=== PATIENT | female | born 1980 | race Caucasian/White ===

== ENCOUNTER 2016-09-05 05:35 | Outpatient (CLI) | payer MEDICAID ==
[~2016-09-05] VITALS: Ht 172.7 cm; Wt 94.3 kg
[~2016-09-05 05:35] MED LIST: ACET-789 PO; IBUP-1773 PO; METF1000 PO; [UNRECOGNIZED DRUG - CODE] PO
--- NOTE | 2016-09-05 08:54 | Progress Note-Pre Operative ---
Pre-Operative Progress Note H&P Reviewed The H&P was reviewed, patient examined and no changes noted. Date H&P Reviewed: Sep 05, 2016 Time H&P Reviewed: 08:50 Pre-Operative Diagnosis: Pelvic Mass(cystic structure) LAURA LAUGHLIN DO Sep 05, 2016 8:54 am
== END 2016-09-05 13:24 ==
LOC: PREOP 05:35
PROVIDERS: ATTEND Obstetrics & Gynecology
DX: Z01.818 Encounter for other preprocedural examination (principal); N93.9 Abnormal uterine and vaginal bleeding, unspecified

== ENCOUNTER 2016-09-12 06:04 | Day surgery (SDC) | payer MEDICAID ==
[~2016-09-12] VITALS: Ht 172.7 cm; Wt 94.3 kg
--- OUTSIDE RECORDS SUMMARY | 2016-09-12 06:09 | XMS REPORT | Continuity of Care Document ---
Author Author [facility] Organization [facility] Address Unknown Phone Unavailable Allergies Medications Problems Procedures Results Encounters ACCT No. Visit Date/Time Discharge Status Pt. Type Provider Facility Loc./Unit Complaint [id number] 08/12/2014 10:59:25 08/12/2014 23: 59:59 CLS Outpatient Maribel Zimmerman [id number] 04/21/2014 20:44:42 04/21/2014 23: 59:59 CLS Outpatient Efe Monroe
[2016-09-12 06:30] VITALS: BP 116/77
[2016-09-12] MEDS ORDERED: ceFAZolin 1,000 MG (ANCEF) VIAL ONE (06:34)
[2016-09-12] MEDS ORDERED: metroNIDAZOLE 500MG/100ML IVPB 100 ML ONE (06:34)
[2016-09-12] MEDS ORDERED: NS (IVPB) 50 ML ONE (06:34)
[2016-09-12] MEDS ORDERED: metroNIDAZOLE 500 MG/100 ML IVPB (PRE-MIX) IV ONE (06:45)
[2016-09-12] MEDS ORDERED: ceFAZolin 1 GM/NS 50 ML IVPB IV ONE ×2 (06:45)
--- NOTE | 2016-09-12 06:51 | Progress Note-Pre Operative ---
Pre-Operative Progress Note H&P Reviewed The H&P was reviewed, patient examined and no changes noted. Date H&P Reviewed: Sep 12, 2016 Time H&P Reviewed: 06:50 Pre-Operative Diagnosis: AUB, Obesity LAURA LAUGHLIN DO Sep 12, 2016 6:51 am
[2016-09-12] MEDS ORDERED: LIDOCAINE PF 2% 10 ML (XYLOCAINE) AMP ONE (06:53)
[2016-09-12] MEDS ORDERED: ROCURONIUM 50 MG/5 ML (ZEMURON) VIAL IV ONE (06:53)
[2016-09-12] MEDS ORDERED: proPOfol 200 MG/20 ML (DIPRIVAN) VIAL IV ONE (06:53)
[2016-09-12] MEDS ORDERED: LIDOCAINE JELLY 2% (XYLOCAINE) 5 ML TUBE ONE (06:53)
[2016-09-12] MEDS ORDERED: ONDANSETRON 4 MG/2 ML (SDV) Z0FRAN ONE (06:53)
[2016-09-12] MEDS ORDERED: MIDAZOLAM 2 MG/2 ML (VERSED) VIAL ONE (06:54)
[2016-09-12] MEDS ORDERED: fentaNYL INJECTION 250 MCG/5 ML AMP ONE (06:54)
[2016-09-12 07:00] LABS: BASOPHILS % (AUTO) 0 % (0-10); EOSINOPHILS # (AUTO) 0.3 10^3/uL (0.0-0.3); EOSINOPHILS % (AUTO) 4 % (0-10); LYMPHOCYTES # (AUTO) 2.7 X 10^3 (1.0-4.0); LYMPHOCYTES % (AUTO) 39 % (12-44); MEAN CORPUSCULAR HEMOGLOBIN 31 PG (25-34); MEAN CORPUSCULAR HGB CONC 35 G/DL (32-36); MEAN CORPUSCULAR VOLUME 88 FL (80-99); MEAN PLATELET VOLUME 9.2 FL (7.4-10.4); MONOCYTES # (AUTO) 0.7 X 10^3 (0.0-1.0); MONOCYTES % (AUTO) 10 % (0-12); NEUTROPHILS # (AUTO) 3.3 X 10^3 (1.8-7.8); NEUTROPHILS % (AUTO) 48 % (42-75); PLATELET COUNT 313 10^3/uL (130-400); RED BLOOD COUNT 4.61 10^6/uL (4.35-5.85); RED CELL DISTRIBUTION WIDTH 11.6 % (10.0-14.5)
[2016-09-12] MEDS ORDERED: BUPIVACAINE 0.25% 30 ML (SENSORCAINE) VIAL ONE (07:06)
[2016-09-12] MEDS: LACTATED RINGERS 1,000 ML IV PRN ×2 (07:18→08:20)
[2016-09-12] MEDS ORDERED: SEVOFLURANE (ULTANE) 15 ML INHAL SOLN ONE ×6 (07:50→09:00)
[2016-09-12] MEDS ORDERED: LACTATED RINGERS 1,000 ML IV ONE (09:00)
--- NOTE | 2016-09-12 09:07 | Progress Note-Post Operative ---
Post-Operative Progess Note Swatch Paster Dana Galeas Pre-Operative Diagnosis AUB, Obesity Post-Operative Diagnosis same Post-Op Procedure Note Date of Procedure: Sep 12, 2016 Name of Procedure: RATLH with bilateral salpingectomy Procedure Note/Findings see dictation Anesthesia Type GETA Estimated blood loss (mL): 30 Specimen(s) collected uterus and tubes LAURA LAUGHLIN DO Sep 12, 2016 9:07 am
--- NOTE | 2016-09-12 09:10 | Discharge Inst-Women's Service ---
Discharge Inst-Women's Serv Depart Medication/Instructions New, Converted or Re-Newed RX: RX on Chart Consults/Follow Up Additional Follow Up: Yes Orders/Referrals Dr. Lucia in 7-10 days and in 8 Weeks Activity Activity: Activity as Tolerated Driving Instructions: No Driving for 1 Week NO SMOKING: NO SMOKING Nothing Inside Vagina: No Douching, No Windber, No Tampons Diet Discharge Diet: No Restrictions Symptoms to Report to : Bleeding Excessive, Pain Increased, Fever Over 101 Degrees F, Vaginal Bleeding Increase, Questions/Concerns For Any Problems or Questions: Contact Your Physician Skin/Wound Care Infection Signs and Symptoms: Increased Redness, Foul Odor of Wound, Increased Drainage, Skin Itchy or Has a Rash, Increased Swelling, Temperature Above 101 F Operative Area Clean and Dry: Keep Incision Clean/Dry Stitches/Dano/Dermabond: Dermabond, Care of Stitches Bathing Instructions: LAURA Vasquez DO Sep 12, 2016 9:10 am
[2016-09-12] MEDS ORDERED: DOCU100C37 PO (09:11)
[2016-09-12] MEDS ORDERED: HYDR-3816 PO (09:11)
[2016-09-12] MEDS ORDERED: SIME80TA16 PO (09:11)
[2016-09-12] MEDS ORDERED: IBUP-1773 PO (09:11)
[2016-09-12] MEDS ORDERED: CHLORASEPTIC LOZENGE MM PRN (09:15)
[2016-09-12] MEDS ORDERED: ONDANSETRON 4 MG/2 ML (SDV) Z0FRAN IV PRN (09:15)
[2016-09-12] MEDS ORDERED: HYDROcodone/APAP 7.5 MG/325 MG (LORTAB, LORCET PLUS) TABLET PO PRN (09:15)
[2016-09-12] MEDS ORDERED: ZOLPIDEM 5 MG (AMBIEN) TAB PO PRN (09:15)
[2016-09-12] MEDS ORDERED: ANTACID SUSP 30 ML UDC (MYLANTA) PO PRN (09:15)
[2016-09-12] MEDS ORDERED: SIMETHICONE 80 MG (MYLICON) CHEW PO PRN (09:15)
[2016-09-12] MEDS ORDERED: DOCUSATE SODIUM 100 MG (COLACE) CAP PO PRN (09:15)
[2016-09-12] MEDS ORDERED: fentaNYL INJECTION 100 MCG/2 ML AMP ONE (09:18)
[2016-09-12] MEDS: fentaNYL INJECTION 100 MCG/2 ML AMP IVP PRN ×2 (09:29→09:36)
[2016-09-12] MEDS ORDERED: MEPERIDINE (DEMEROL) INJ 50 MG/ML IVP PRN (09:30)
[2016-09-12] MEDS ORDERED: ONDANSETRON 4 MG/2 ML (SDV) Z0FRAN IVP PRN (09:30)
[2016-09-12] MEDS: KETOROLAC 30 MG/ML VIAL IV PRN ×2 (09:31→16:31)
[2016-09-12] MEDS: morphine INJ 10 MG/ML 1ML (SYR OR VIAL) IVP PRN ×2 (09:47→09:56)
[2016-09-12 10:30] VITALS: BP 124/74
[2016-09-12] MEDS: LACTATED RINGERS 1,000 ML IV SCH ×2 (10:49→13:50)
[2016-09-12 12:45] VITALS: BP 102/62
[2016-09-12] MEDS ORDERED: HYDROmorphone (DILAUDID) 2 MG/ML VIAL IVP ONE (13:30)
[2016-09-12] MEDS ORDERED: FUROSEMIDE 40 MG/4 ML INJ (LASIX) IVP NR (15:15)
[2016-09-12] MEDS ORDERED: FUROSEMIDE 40 MG/4 ML INJ (LASIX) ONE (15:15)
[2016-09-12 15:25] VITALS: BP 110/66
[2016-09-12] MEDS ORDERED: PROMETHAZINE INJ 25 MG/ML (PHENERGAN) AMP IVP ONE (17:30)
[2016-09-12 19:45] VITALS: BP 107/68
[2016-09-13] MEDS ORDERED: IBUPROFEN 600 MG (MOTRIN) TAB PO PRN (02:00)
--- NOTE | 2016-09-13 11:14 | OPERATIVE REPORT ---
PROCEDURE PHYSICIAN: LORENZO LAUGHLIN DATE OF PROCEDURE: 09/12/2016 PREOPERATIVE DIAGNOSIS: 1. 36-year-old female with abnormal uterine bleeding. 2. Dysmenorrhea. 3. Obesity. 4. Tobacco use. POSTOPERATIVE DIAGNOSIS: 1. 36-year-old female with abnormal uterine bleeding. 2. Dysmenorrhea. 3. Obesity. 4. Tobacco use. PROCEDURE: Robotic assisted total laparoscopic hysterectomy and bilateral salpingectomy. SURGEON: Dr. Lorenzo Laughlin. CRM CAMPAIGN MANAGER: Dana Galeas APRN ANESTHESIA: General endotracheal. ESTIMATED BLOOD LOSS: 30 mL. URINE OUTPUT: 25 mL, clear at the of the procedure. FLUIDS: 1700 mL lactated ringer solution. FINDINGS: Findings is a normal appearing uterus that is slightly hyperemic and hypervascular appearing with some filmy adhesions of the vesicouterine peritoneum. Grossly normal appearing bilateral ovaries, grossly normal appearing bilateral fallopian tubes. SPECIMEN SENT: Uterus, bilateral fallopian tubes. INDICATIONS FOR THE PROCEDURE: This 36-year-old female was a consultation from my office for abnormal uterine bleeding. She underwent D&C hysteroscopy approximately 4 to 5 months ago. Endometrial curettings from that procedure found to have no signs of infection, malignancy or hyperplasia. After this, the patient continued to have issues with bleeding for the next 3 to 4 months to the point that it extremely frustrating. She been extensively counseled about controlling abnormal uterine bleeding with oral contraceptive pills, NSAIDS, tranexamic acid, Mirena IUD, endometrial ablations and then finally the most definitive measure would be moving forward to hysterectomy. After all those were discussed with the patient, due to her tobacco use, we did eliminate hormonal management and the patient did not wish to go forward with any of the other measures once they were discussed in detail. Therefore, she opted to proceed with hysterectomy. Risks of the procedure were discussed with the patient in detail including risk of bleeding, infection, damaging any surrounding structures, including, but not limited to the bowel, bladder, ureter, kidneys, risk for possible subsequent surgeries if any of these things should occur. Risk of postoperative hematoma formation, thromboembolic event, risk from anesthesia, risk for blood transfusion, and even were discussed with the patient. After all of her questions were answered. She was scheduled for the procedure. Consent was obtained in the preoperative area where the procedure was reviewed with her present and the patient was then taken the operating room. OPERATIVE REPORT IN DETAIL: Once in the operating room, general anesthesia was found to be adequate. She was placed in dorsal lithotomy position, prepped and draped in the normal sterile fashion. She was first examined under anesthesia. The uterus is not enlarged, freely mobile. There is no adnexal fullness or masses appreciated on bimanual examination. A weighted speculum was inserted into the patient's vagina. A right angle retractor is used to visualize the cervix. It was grasped at 12 o'clock position using a long Allis clamp. I then place an 0 Vicryl suture to the anterior lip of the cervix, remove the long Allis clamp and use my suture now as my retraction point. I then gently sound the uterine cavity depth which was found to be 8 cm. I then select an 8 cm PADMAJA uterine manipulator tip and a 3.5 cm colpotomy ring and place in the endometrial cavity, deploy the balloon and advanced the colpotomy ring around the vaginal fornix. Once this is in place there is excellent uterine manipulation noted on bimanual examination. I then proceed with placing a Ortiz catheter using sterile technique. I perform a change of gloves and take my attention to the abdomen where infraumbilically, I infiltrate this area using 0.25% Marcaine. I make an 8 mm incision and direct a Veress needle through this incision until intraperitoneal placement is confirmed using saline drop test. I proceed with insufflation using CO2 gas. An opening pressure of 5 mmHg is noted. I proceed to maximum pressure of 15 mmHg at which point I remove the Veress needle and introduced an 8 mm blunt da Kyung camera trocar. Once this is in place, intraperitoneal placement is confirmed using the da Kyung laparoscope. I then place 2 lateral trocars; these are both 8 mm trocars. I infiltrate the skin using 0.25% Marcaine make 8 mm incision and approximately 8 cm lateral to my infraumbilical trocar. We direct these trocars under direct visualization of the laparoscope into the peritoneal cavity. Once they are in the peritoneal cavity and I have adequate instrumentation to dock the da Kyung robot, we bring in the da Kyung robot and dock it in the appropriate fashion. I place the da Kyung vessel sealer in the left hand. Monopolar justen in the right hand and take my place at the operative console. I perform the following dissection bilaterally; I grasp the utero-ovarian ligament using the vessel sealer and bipolar cauterize and transect it using the vessel sealer. I then create a window in the mesosalpinx and take this dissection laterally using the monopolar shear and the vessel sealer removing the fallopian tube from the mesosalpinx. I then grasp the round ligament, bipolar cauterizing it and transecting using the vessel sealer. I then am able to grasp the entire broad ligament from the cephalad approach. I grasp this, bipolar cauterize it and transect it using the vessel sealer down to the level of the lower uterine segment; keeping an eye on the it pulsating and peristalsing ureters laterally the entire time, staying clear of these. I then separate the anterior posterior leaflets of the broad ligament. The anterior leaflet is taken around to the anterior vaginal fornix. The posterior leaflet is taken around to the posterior vaginal fornix. This allows me to skeletonize the uterine vessels laterally, bipolar cauterize them and transect them using the vessel sealer. Once a circumferential view is noted of my colpotomy ring, I perform a colpotomy at the 12 o'clock position using monopolar justen and take this circumferentially around the vaginal fornix, amputating the uterus and cervix away from the vaginal fornix. The entire uterus and bilateral fallopian tubes are then removed through the vagina. I then proceed with closing the vagina using 2-0 Vicryl suture in a [id number] fashion of the lateral vaginal apices. The remainder of the vaginal cuff is closed using 2-0 V-Loc in a running fashion. There is no active bleeding noted from any my dissection planes. I then undock the da Kyung robot and copiously irrigate the pelvis using normal saline, after I scrub back into the procedure. Once again there is no active bleeding noted from any my dissection planes. I then place FloSeal hemostatic agent over all my planes of dissection. I have the patient taken out of steep Trendelenburg. I direct and visualize the lateral trocar sites been removed. There is no active bleeding noted or hematoma formation noted from either one of these trocar sites. I then release insufflation from my infraumbilical trocar site and introduce 10 mL of 0.25% Marcaine into the upper abdomen to help with postoperative pain management. I then remove this trocar as well. The skin was then closed using 4-0 Monocryl in an interrupted subcuticular stitches. Dermabond is applied to the incision. Band-Aids are placed over this. Ortiz catheter was left in place. The patient tolerated the procedure well and was taken to the recovery area in stable condition. Lap and sponge counts were correct at the end of the procedure. Instrument counts correct as well. Job ID: [id number] Dictated Date: 09/12/2016 09:37:23 Acid Conditioning Worker Date: 09/13/2016 10:47:16 / sabrina
== END 2016-09-12 20:31 | disposition home or self-care (01) ==
LOC: SDC 06:04 → WS 10:30 → SDC 20:31
PROVIDERS: ATTEND Obstetrics & Gynecology
DX: N94.6 Dysmenorrhea, unspecified (principal); F17.210 Nicotine dependence, cigarettes, uncomplicated; E66.9 Obesity, unspecified; Z68.31 Body mass index [BMI] 31.0-31.9, adult
CPT/HCPCS: 36415; 82962; 84703; 85025; 86850; 86900; 86901; 87081; 88307; 94664; 96361; 96375